=== PATIENT | female | born 1980 | race Caucasian/White ===

== ENCOUNTER 2017-07-03 16:29 | Emergency (ER) | payer OTHER ==
[2017-07-03 16:37] VITALS: BP 126/67; PULSE 76; RESP 17; TEMP 98.2; O2SAT 96
--- NOTE | 2017-07-03 17:20 | EDPHY ---
H & P Stated Complaint: MECHANICAL FALL. C/O LEFT ANKLE PAIN - Personal History LMP (Females 10-55): 22-28 Days Ago Current Tetanus/Diphtheria Vaccine: Yes Current Tetanus Diphtheria and Acellular Pertussis (TDAP): Yes Tetanus Vaccine Date: < 10 YEARS - Medical/Surgical History Hx Asthma: No Hx Chronic Respiratory Disease: No Hx Diabetes: No Hx Cardiac Disease: No Hx Renal Disease: No Hx Cirrhosis: No Hx Alcoholism: No Hx HIV/AIDS: No Hx Splenectomy or Spleen Trauma: No Other PMH: DENIES - Social History Smoking Status: Never smoked Time Seen by Provider: 07/03/17 17:19 HPI/ROS: HPI: This is a 37-year-old female presents with Chief Complaint: MECHANICAL FALL. C/O LEFT ANKLE PAIN Location: Left lateral ankle Quality: Injury Duration: Prior to arrival Signs and Symptoms: No bleeding, no radiation, no numbness, no weakness, no tingling, no incontinence, + decreased range of motion, + swelling, + pain Timing: Sudden Severity: 03/26 Context: Patient reports that she was in a restaurant with her kids and went to get him straws when the floor had grease on and she slipped and twisted her ankle. She felt immediate pain in the lateral aspect of her ankle that increased with weight-bearing. She drove herself to the emergency room for further evaluation. She also notes some soreness in the left lateral put neck as well as her left triceps reports that she did not fall or hit her head. No LOC. Denies paresthesias/skin color changes. LMP 3 weeks ago Modifying Factors: No [id number] pain medications or ice applied Comment: ROS: see HPI Constitutional: No fever, no chills, no weight loss Eyes: No blurred vision Respiratory: No shortness of breath, no cough Cardiovascular: No chest pain Gastrointestinal: No nausea, no vomiting no diarrhea Genitourinary: No dysuria Extremities: No myalgias Neurologic: No weakness, no numbness Skin: No rashes Hematologic: No bruising, no bleeding MEDICAL/SURGICAL/SOCIAL HISTORY: Medical history: Generally healthy. Does not take any regular medications. Surgical history: Denies Social history: with children CONSTITUTIONAL: awake and alert, no obvious distress HEENT: Atraumatic and normocephalic, PERRL, EOMI. Tympanic membranes clear. Oropharynx clear, no exudate and moist pink mucosa. Airway patent. No lymphadenopathy. NECK: supple, no midline tenderness, flexion 45 degrees, extension 45 degrees, right and left lateral flexion 45 degrees. Moderate tenderness over her left trapezius muscle. No meningismus. Cardiovascular: Normal S1/S2, regular rate, regular rhythm, without murmur rub or gallop. PULMONARY/CHEST: Symmetrical and nontender. Clear to auscultation bilaterally. Good air movement. No accessory muscle usage. ABDOMEN: Soft, nondistended, nontender, no rebound, no guarding, no peritoneal signs, no masses or organomegaly. No CVAT. EXTREMITIES: 2/2 DP and PT pulses, LEFT Ankle; Plantar flexion to 50, dorsiflexion to 20. Foot inversion to 35 degree. Moderate tenderness Anterior talofibular ligament. Moderate tenderness Calcaneofibular ligament, no tender posterior talofibular ligament, no tenderness posterior inferior tibiofibular ligament Achilles tendon intact. RIGHT SHOULDER: Arc test abduction to 180, abduction to 45, horizontal flexion 130, horizontal extension to 45, deltoid strength 5/5. No pain with Neer test/Aranda test. No Tenderness to palpation over AC joint. strength 5/5, no deformities, no clubbing, no cyanosis or edema. NEUROLOGICAL: no focal neuro deficits. GCS 15. SKIN: Warm and dry, no erythema. no rash. Good capillary refill. (Margoth Arellano) Constitutional: Initial Vital Signs Temperature (C) 36.8 C 07/03/17 16:32 Heart Rate 76 07/03/17 16:32 Respiratory Rate 17 07/03/17 16:32 Blood Pressure 126/67 H 07/03/17 16:32 O2 Sat (%) 96 07/03/17 16:32 O2 Delivery Mode Room Air Allergies/Adverse Reactions: doxycycline [Doxycycline] Allergy (Mild, Verified 05/27/09 07:35) Itching Home Medications: Medication Instructions Recorded Hydrocodone Bit/Acetaminophen 1 - 2 tab PO Q6PRN PRN #20 tab 12/09/12 [Vicodin 5/500] Vitamins Dose Unk 12/09/12 Cyclobenzaprine [Flexeril 10 MG 10 mg PO TID PRN #12 tab 07/03/17 (*)] oxyCODONE/APAP 5/325 [Percocet 1 - 2 tab PO Q4H PRN #10 tab 07/03/17 5/325 (*)] Medical Decision Making Procedures: Procedure: Splint placement. A left stirrup splint was applied by the Emergency Room husbandry technician. After application of the splint I returned and re-examined the patient. The splint was adequately immobilizing the joint and distal to the splint the patient's circulation and sensation was intact. (Margoth Arellano) ED Course/Re-evaluation: Left ankle x-ray ordered and reviewed via PACs and shows no acute fracture, dislocation. Placed in ankle stirrup splint and given crutches with weight-bearing as tolerated. No signs of neurovascular compromise/tenting of skin/compartment syndrome/ extremities and joints examined above and below area of concern and are neurovascularly intact. (Margoth Arellano) The patient was evaluated and managed by the physician events assistant. I have reviewed this chart and I agree with the findings and plan of care as documented , as indicated by my signature. I am the secondary supervising physician. ( Yolanda Cruz) Differential Diagnosis: Differential diagnosis includes but is not limited to fibular fracture, tibia fracture, midfoot fracture, ligament strain, nerve injury. (Margoth Arellano) Departure - Departure Disposition: Home, Routine, Self-Care Clinical Impression: Grade 2 ankle sprain Condition: Good Instructions: Ankle Sprain (ED), Ankle Stirrup Splint (ED) Additional Instructions: Wear the ankle stirrup splint until pain free and while out of bed. Use crutches as needed until able to bear weight without pain. Take ibuprofen 600-800 mg every 6-8 hours with food as needed for pain and inflammation. Apply ice for 30 minutes at a time; 2-3 times per day for the next 1-2 days. Follow up with Orthopedics in 7-10 days at which time they will evaluate and recommend with you if conservative management versus surgery is indicated. The x-rays obtained in the emergency department today demonstrate no evidence of an obvious fracture. Sometimes fractures are not obvious on the initial set of x-rays performed in the ED. For this reason, you should have repeat x-rays performed in 7-10 days if you are having any pain exclude the possibility of an occult fracture. Referrals: Familia Ramirez MD [Medical Doctor] - As per Instructions Prescriptions: Cyclobenzaprine [Flexeril 10 MG (*)] 10 mg PO TID PRN #12 tab PRN Reason: Spasms oxyCODONE/APAP 5/325 [Percocet 5/325 (*)] 1 - 2 tab PO Q4H PRN #10 tab PRN Reason: Pain, Severe
== END 2017-07-03 17:57 | disposition home or self-care (01) ==
DX: S93.402A Sprain of unspecified ligament of left ankle, initial encounter (principal); W01.0XXA Fall on same level from slipping, tripping and stumbling without subsequent striking against object, initial encounter; Y92.511 Restaurant or cafe as the place of occurrence of the external cause
CPT/HCPCS: L4350

== ENCOUNTER 2018-04-30 13:03 | Emergency (ER) | payer OTHER ==
[2018-04-30] MEDS ORDERED: DEXAMETHASONE 4 MG TAB PO ONE (13:50)
--- NOTE | 2018-04-30 13:52 | EDPHY ---
H & P Stated Complaint: st/fever vomited last night Time Seen by Provider: 04/30/18 13:46 HPI/ROS: CHIEF COMPLAINT: Sore throat, vomiting HISTORY OF PRESENT ILLNESS: 38-year-old female presents with sore throat and vomiting. Onset of sore throat yesterday, associated with fever. Vomited last evening, continues to feel nauseated today. The sore throat is moderate to severe. Associated with mild nasal congestion and slight cough. REVIEW OF SYSTEMS: complete 10 point ROS negative except at noted in the HPI - Personal History LMP (Females 10-55): 22-28 Days Ago Current Tetanus Diphtheria and Acellular Pertussis (TDAP): Unsure Tetanus Vaccine Date: < 10 YEARS - Medical/Surgical History Hx Asthma: No Hx Chronic Respiratory Disease: No Hx Diabetes: No Hx Cardiac Disease: No Hx Renal Disease: No Hx Cirrhosis: No Hx Alcoholism: No Hx HIV/AIDS: No Hx Splenectomy or Spleen Trauma: No Other PMH: DENIES - Social History Smoking Status: Never smoked - Physical Exam Exam: General Appearance: Alert, pleasant, appears uncomfortable Eyes: Pupils equal and round, no conjunctival injection ENT, Mouth: Pharyngeal erythema, no exudate, Mucous membranes moist Neck: Normal inspection, shoddy anterior adenopathy Respiratory: Lungs are clear to auscultation, no wheezing Cardiovascular: Regular rate and rhythm Gastrointestinal: Abdomen is soft and nontender Neurological: A&O, nonfocal, normal gait Skin: Warm and dry, no rash Extremities: Normal inspection Psychiatric: Mood and affect normal Constitutional: Initial Vital Signs Temperature (C) 37.7 C 04/30/18 13:06 Heart Rate 84 04/30/18 13:06 Respiratory Rate 17 04/30/18 13:06 Blood Pressure 105/75 04/30/18 13:06 O2 Sat (%) 95 04/30/18 13:06 O2 Delivery Mode Room Air Allergies/Adverse Reactions: doxycycline [Doxycycline] Allergy (Mild, Verified 05/27/09 07:35) Itching Tetracyclines Allergy (Verified 04/30/18 13:05) Home Medications: Medication Instructions Recorded Ondansetron Odt [Zofran Odt 4 mg 4 mg PO Q4 PRN #6 tab 04/30/18 (*)] Penicillin V Potassium 500 mg PO TID #30 tablet 04/30/18 Medical Decision Making ED Course/Re-evaluation: This patient presents with strep pharyngitis. Zofran 4 mg ODT and Decadron 6 mg orally given. Prescription for penicillin. Differential Diagnosis: Differential diagnosis includes but is not limited to pneumonia, otitis media, peritonsillar abscess, retropharyngeal abscess, meningitis. - Data Points Laboratory Results: 04/30/18 13:09 Group A Strep Screen POSITIVE H (NEGATIVE) Departure - Departure Disposition: Home, Routine, Self-Care Clinical Impression: Acute streptococcal pharyngitis Condition: Good Instructions: Strep Throat (ED) Additional Instructions: Ibuprofen 600 mg 3 times daily while the pain persists. Drink plenty of fluids. Return for worsening symptoms or any concerns. Referrals: Brittnee Nobles MD [Medical Doctor] - As per Instructions Prescriptions: Ondansetron Odt [Zofran Odt 4 mg (*)] 4 mg PO Q4 PRN #6 tab PRN Reason: Nausea Penicillin V Potassium 500 mg PO TID #30 tablet
[2018-04-30] MEDS ORDERED: ONDANSETRON DISINTEGRATING 4 MG TAB PO ONE (13:57)
[2018-04-30] MEDS ORDERED: ACETAMINOPHEN 325 MG TAB PO ONE (14:00)
[2018-04-30 14:19] VITALS: BP 120/75
== END 2018-04-30 14:20 | disposition home or self-care (01) ==
DX: J02.0 Streptococcal pharyngitis (principal)